=== PATIENT | female | born 1975 | race Caucasian/White ===

== ENCOUNTER → 2018-01-22 20:37 | Outpatient (CLI) | payer BC | END | disposition home or self-care (01) | LOC: D.MAMMO 01-19 09:30 | DX: Z01.419 Encounter for gynecological examination (general) (routine) without abnormal findings (principal) ==

== ENCOUNTER 2019-04-08 09:00 | Outpatient (CLI) | payer BC | END 2019-04-08 10:00 | disposition home or self-care (01) | LOC: D.MAMMO 09:00 | PROVIDERS: ATTEND Emergency Medicine | DX: Z12.31 Encounter for screening mammogram for malignant neoplasm of breast (principal) ==

== ENCOUNTER 2020-08-23 17:00 | Outpatient (CLI) | payer BC | END 2020-08-23 23:59 | disposition home or self-care (01) | LOC: D.MAMMO 17:00 | PROVIDERS: ATTEND Emergency Medicine | DX: Z12.31 Encounter for screening mammogram for malignant neoplasm of breast (principal) ==